=== PATIENT | female | born 1990 | race Caucasian/White ===

== ENCOUNTER 2016-07-23 16:40 | Emergency (ER) | payer BC ==
[2016-07-23] MEDS ORDERED: Lidocaine 1% with EPINEPHrine 1:100,000 20 ML MDV INJECT ONE (19:17)
[2016-07-23] MEDS ORDERED: cefTRIAXone 1 GM in Premix Bag 1 BAG IV ONE (20:13)
[2016-07-23] MEDS ORDERED: Ketorolac 30 MG/ML SDV IVPUSH ONE (20:13)
[2016-07-23] MEDS ORDERED: Sodium Chloride 0.9% 1,000 ML IV ONE (20:13)
[2016-07-23] MEDS ORDERED: Ondansetron 4 MG/2 ML SDV IVPUSH ONE (20:13)
[2016-07-23] MEDS ORDERED: Morphine 2 MG/ML Syringe IVPUSH ONE (20:13)
[2016-07-23 21:20] VITALS: BP 103/60
--- NOTE | 2016-07-23 21:31 | EDM.PDOC ---
ED HPI GENERAL MEDICAL PROBLEM - General Chief Complaint: [employer] EXAMINER Problem Stated Complaint: UNK Time Seen by Provider: 07/23/16 20:50 Source of Information: Reports: Patient History Limitations: Reports: No Limitations - History of Present Illness INITIAL COMMENTS - FREE TEXT/NARRATIVE: History of present illness: 25-year-old female comes in complaining of a Bartholin's cyst that is inflamed and getting worse. Patient indicates she saw her PCP and they lanced it and drained it but was not given antibiotics nor was there a week or a catheter placed now the incision has sealed and there is worsening swelling[] Review of systems: As per history of present illness and below otherwise all systems reviewed and negative. Past medical history: As per history of present illness and as reviewed below otherwise noncontributory. Surgical history: As per history of present illness and as reviewed below otherwise noncontributory. Social history: No reported history of drug or alcohol abuse. Family history: As per history of present illness and as reviewed below otherwise noncontributory. Physical exam: HEENT: Atraumatic, normocephalic, pupils reactive, negative for conjunctival pallor or scleral icterus, mucous membranes moist, throat clear, neck supple, nontender, trachea midline. Lungs: Clear to auscultation, breath sounds equal bilaterally, chest nontender. Heart: S1S2, regular, negative for clicks, rubs, or JVD. Abdomen: Soft, nondistended, nontender. Negative for masses or hepatosplenomegaly. Negative for costovertebral tenderness. Pelvis: Stable nontender. Genitourinary: Left labia noted to be erythematous, tender, with a sealed incision. Area of erythema descending down into the perineal area and into the inguinal region of the left leg. Lymph glands in the left groin noted to be enlarged and painful to palpation. Rectal: Deferred. Extremities: Atraumatic, negative for cords or calf pain. Neurovascular unremarkable. Neuro: Awake, alert, oriented. Cranial nerves II through XII unremarkable. Cerebellum unremarkable. Motor and sensory unremarkable throughout. Exam nonfocal. Area around the labia and in the perineal area cleaned with Betadine. 1% lidocaine injected until anesthesia was appreciated approximately 3 mils surrounding the Bartholin's cyst. An 11 blade utilized to enlarge the previous incision with a moderate amount of purulent drainage obtained and the remnants of a cyst sac noted. Iodoform 1/4 inch tape packed with a pad provided for patient. Diagnostics: [] Therapeutics: [IV fluids, morphine, Zofran, Toradol] Impression: [Bartholin's glands cyst] Plan: [Antibiotics, pain meds] Definitive disposition and diagnosis as appropriate pending reevaluation and review of above. Vaginal Pain Score (Numeric/FACES): 8 - Related Data Allergies Allergy/AdvReac Type Severity Reaction Status Date / Time No Known Allergies Allergy Verified 07/23/16 19:44 Home Meds: Home Meds Desogestrel-Ethinyl Estradiol [er 28 Day Tablet] 1 each PO DAILY 07/23/16 [ History] Past Medical History - Past Health History Medical/Surgical History: Denies Medical/Surgical History [employer] EXAMINER History: Reports: Other (See Below) Other OB/BYN History: HPV Musculoskeletal History: Reports: Other (See Below) Other Musculoskeletal History: Scoliosis - Infectious Disease History Infectious Disease History: Reports: Human Papilloma Virus (HPV) Social & Family History - Family History Family Medical History: Noncontributory - Tobacco Use Smoking Status *Q: Never Smoker - Caffeine Use Caffeine Use: Reports: Coffee - Alcohol Use Days Per Week of Alcohol Use: 2 Number of Drinks Per Day: 2 Total Drinks Per Week: 4 - Recreational Drug Use Recreational Drug Use: No ED ROS GENERAL - Review of Systems Review Of Systems: See Below (See history of present illness) ED EXAM, GENERAL - Physical Exam Exam: See Below (See history of present illness) Course - Vital Signs Last Recorded V/S: Last Vital Signs Temp 36.9 C 07/23/16 21:19 Pulse 93 07/23/16 21:19 Resp 18 07/23/16 21:19 BP 103/60 07/23/16 21:19 Pulse Ox 98 07/23/16 21:19 - Orders/Labs/Meds Meds: Medications Discontinued Medications Generic Name Dose Route Start Last Admin Trade Name Freq PRN Reason Stop Dose Admin Sodium Chloride 1,000 mls @ 999 mls/hr 07/23/16 20:13 07/23/16 20:30 Normal Saline IV 07/23/16 21:13 999 mls/hr STAT ONE Administration Ceftriaxone Sodium/Dextrose 1 50 mls @ 100 mls/hr 07/23/16 20:13 07/23/16 20: 44 gm/ Premix IV 07/23/16 20:42 100 mls/hr ONETIME ONE Administration Ketorolac Tromethamine 30 mg 07/23/16 20:13 07/23/16 20:39 Toradol IVPUSH 07/23/16 20:14 30 mg ONETIME ONE Administration Lidocaine/Epinephrine 20 ml 07/23/16 19:17 07/23/16 19:25 Xylocaine 1% With Epinephrine 1:100,000 INJECT 07/23/16 19:18 20 ml ONETIME ONE Administration Morphine Sulfate 2 mg 07/23/16 20:13 07/23/16 20:43 Morphine IVPUSH 07/23/16 20:14 2 mg ONETIME ONE Administration Ondansetron HCl 8 mg 07/23/16 20:13 07/23/16 20:35 Zofran IVPUSH 07/23/16 20:14 8 mg ONETIME ONE Administration Departure - Departure Time of Disposition: 21:31 Disposition: Home, Self-Care 01 Condition: Good Clinical Impression: Cyst of Bartholin's gland duct - Discharge Information Forms: ED Department Discharge Additional Instructions: The following information is given to patients seen in the emergency department who are being discharged to home. This information is to outline your options for follow-up care. We provide all patients seen in our emergency department with a follow-up referral. The need for follow-up, as well as the timing and circumstances, are variable depending upon the specifics of your emergency department visit. If you don't have a primary care physician on staff, we will provide you with a referral. We always advise you to contact your personal physician following an emergency department visit to inform them of the circumstance of the visit and for follow-up with them and/or the need for any referrals to a consulting specialist. The emergency department will also refer you to a specialist when appropriate. This referral assures that you have the opportunity for follow-up care with a specialist. All of these measure are taken in an effort to provide you with optimal care, which includes your follow-up. Under all circumstances we always encourage you to contact your private physician who remains a resource for coordinating your care. When calling for follow-up care, please make the office aware that this follow-up is from your recent emergency room visit. If for any reason you are refused follow-up, please contact the [facility] Emergency Department at and asked to speak to the emergency department charge nurse. Take medication as directed Follow-up with PCP in 1-2 days Return to ED as needed as discussed
== END 2016-07-23 21:55 | disposition home or self-care (01) ==
LOC: MW.ED 16:40
DX: N75.0 Cyst of Bartholin's gland (principal); Z79.899 Other long term (current) drug therapy
CPT/HCPCS: 56420; 96365; 96375; 99282; J0696; J1885; J2270; J2405; J7040; 99283